=== PATIENT | male | born 1965 | race African-American/Black ===

== ENCOUNTER 2024-08-25 11:32 | Emergency (ER) | payer OTHER, SELFPAY ==
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
--- NOTE | ~2024-08-25 | XR_ITS ---
EXAMINATION: XR LUMBOSACRAL SPINE CLINICAL INFORMATION: pain COMPARISON: None available. TECHNIQUE: Three views of the lumbosacral spine. FINDINGS: Marginal osteophyte formation and syndesmophyte formation with endplate sclerosis decreased intervertebral disc height and vacuum phenomenon, L4-5 and L5-S1. Grade 1 retrolisthesis L4-5. No lytic or blastic lesions. Metallic prosthesis right hip no fully included in the [id number]. XR/XR lumbar spine 2-3V IMPRESSION: Spondylosis L4-5 and L5-S1 resulting in grade 1 retrolisthesis L4-5. Electronically signed by: You Coulter MD 08/25/2024 12:46 PM EDT
[2024-08-25 12:12] VITALS: BP 127/84; PULSE 64; RESP 18; TEMP 36.7; O2SAT 97; BMI 29.5
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
[2024-08-25 14:29] VITALS: BP 127/84; PULSE 64; RESP 18; TEMP 36.7; O2SAT 97
--- OUTSIDE RECORDS SUMMARY | 2024-08-25 17:45 | XMS_ITS | Clinical Summary ---
Author Organization [facility] Address [address] [place] [address] Care Team Providers Care Electrotyper Name Role Phone Yonas Valentin MD Primary Care Provider [phone] Social History Tobacco Use Types Packs/Day Years Used Date Smoking Tobacco: Never Assessed Sex and Gender Information Value Date Recorded Sex Assigned at Not on file Legal Sex Male 11:40 AM EDT Gender Identity Not on file Sexual Orientation Not on file Plan of Treatment Health Maintenance Due Date Last Done Comments DTaP,Tdap,and Td Vaccines (1 - Tdap) 1983 Pneumococcal Vaccine: 50+ Ye ars (1 of 1 - PCV) 2014 Zoster Vaccines (1 of 2) 2014 COVID-19 Vaccine ( - 2023-2 5 season) 2024 Influenza Vaccine (#1) 2024 Cholesterol Screening (Lipid Panel) 03/25/2024 Colorectal Cancer Screening: Colonoscopy 03/25/2024 Depression Screening 03/25/2024 HIV Screening 03/25/2024 Hepatitis C Screening 03/25/2024 Social Influencers of Health Screening 03/25/2024 RSV Immunization Patients 60 + Years Old (1 - 1-dose 75+ series) 2039 HIB Vaccines Aged Out No longer eligi ble based on patient's age to complete this topic HPV Vaccines Aged Out No longer eligi ble based on patient's age to complete this topic Hepatitis A Vaccines Aged Out No long er eligible based on patient's age to complete this topic Hepatitis B Vaccines Aged Out No long er eligible based on patient's age to complete this topic IPV Vaccines Aged Out No longer eligi ble based on patient's age to complete this topic MMR Vaccines Aged Out No longer eligi ble based on patient's age to complete this topic Meningococcal ACWY Vaccine Aged Out N o longer eligible based on patient's age to complete this topic Meningococcal B Vacine Aged Out No lo nger eligible based on patient's age to complete this topic Pneumococcal Vaccine: Pediat rics (0 to 5 Years) and At-Risk Patients (6 to 64 Years) Aged Out No longer eligible b ased on patient's age to complete this topic RSV Immunization Patients Un chang 20 months Aged Out No longer eligible b ased on patient's age to complete this topic Varicella Vaccines Aged Out No longer eligible based on patient's age to complete this topic Care Teams Electrotyper Relationship Specialty Start Date End Date Yonas Valentin MD [address] [place] PCP - General 01/27/24
== END 2024-08-25 14:30 | disposition home or self-care (01) ==
LOC: HO.ED 14:29
PROVIDERS: Emergency Provider Student in an Organized Health Care Education/Training Program; PCP Physician Assistant Medical
DX: S39.012A Strain of muscle, fascia and tendon of lower back, initial encounter (principal); M54.2 Cervicalgia; R51.9 Headache, unspecified; V73.6XXA Passenger on bus injured in collision with car, pick-up truck or van in traffic accident, initial encounter; Y93.9 Activity, unspecified; Y92.410 Unspecified street and highway as the place of occurrence of the external cause; Y99.0 Civilian activity done for income or pay
CPT/HCPCS: 70450; 72100; 72125; 99282; 99284

== ENCOUNTER → 2024-08-25 12:14 | Outpatient (BNV) | payer MEDICAID, SELFPAY | PROVIDERS: PCP Physician Assistant Medical; Visit Provider Radiology Diagnostic Radiology | DX: M47.812 Spondylosis without myelopathy or radiculopathy, cervical region (principal); R51.9 Headache, unspecified; M47.817 Spondylosis without myelopathy or radiculopathy, lumbosacral region; V89.2XXA Person injured in unspecified motor-vehicle accident, traffic, initial encounter | CPT/HCPCS: 70450; 72100; 72125 ==

== ENCOUNTER 2024-08-26 12:51 | Emergency (ER) | payer OTHER, SELFPAY ==
[2024-08-26 13:20] VITALS: BP 121/73; PULSE 61; RESP 17; TEMP 36.6; O2SAT 98; BMI 29.4
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
== END 2024-08-26 20:29 | disposition left against medical advice (07) ==
LOC: HO.ED 20:24
PROVIDERS: Emergency Provider Emergency Medicine; PCP Physician Assistant Medical
DX: M54.9 Dorsalgia, unspecified (principal)
CPT/HCPCS: 99281